=== PATIENT | female | born 1975 | race Two or more races ===

== ENCOUNTER 2022-12-18 14:42 | Emergency (ER) | payer MEDICAID, OTHER ==
[~2022-12-18] VITALS: Ht 170.2 cm; Wt 100.0 kg
[2022-12-18] MEDS ORDERED: HYDROcodone-ACET 10/325MG TAB PO ONE (17:45)
[2022-12-18] MEDS ORDERED: KETOROLAC TROMETH 60MG/2ML VIAL IM ONE (17:45)
[2022-12-18] MEDS ORDERED: ONDANSETRON ODT 4 MG TAB PO ONE (19:00)
[2022-12-18 19:11] VITALS: BP 146/94
== END 2022-12-18 19:16 | disposition home or self-care (01) ==
LOC: ER 14:42 → EDBD 14:42 → ER 19:16
DX: S16.1XXA Strain of muscle, fascia and tendon at neck level, initial encounter (principal); R51.9 Headache, unspecified; M25.512 Pain in left shoulder; M54.59 Other low back pain; V43.62XA Car passenger injured in collision with other type car in traffic accident, initial encounter; Y93.89 Activity, other specified; Y92.89 Other specified places as the place of occurrence of the external cause; Y99.8 Other external cause status
CPT/HCPCS: 72100; 72125; 73030; 99284; Q0162